=== PATIENT | male | born 2000 | race Caucasian/White ===

== ENCOUNTER → 2018-01-05 08:49 | Outpatient (CLI) | payer MEDICARE, MEDICAID, SELFPAY ==
[2018-01-05 09:28] LABS: Abs Immature Grans 0.01 k/cumm (0.0-0.09); Absolute Basophil Count 0.01 k/cumm (0.0-0.2); Absolute Eosinophil Count 0.07 k/cumm (0.0-0.7); Absolute Lymphocyte Count 1.13 k/cumm (1.2-3.4); Absolute Monocyte Count 0.35 k/cumm (0.11-0.7); Absolute Neutrophil Count 2.65 k/cumm (1.2-6.7); Basophils % 0.2; Eosinophils % 1.7; HCT 38.5 % (40.0-50.0); HGB 12.5 g/dL (13.5-17.5); Immature Grans % 0.2; Lymphocytes % 26.8; Mean Corp. HGB Concentration 32.5 g/dL (32.0-36.0); Mean Corpuscular Hemoglobin 28.1 pg (27.0-33.0); Mean Corpuscular Volume 86.5 fL (80-95); Mean Platelet Volume 9.9 fL (8.0-11.0); Monocytes % 8.3; Neutrophils % 62.8; Platelet Count 114 x1000/uL (130-400); RBC 4.45 m/cumm (4.50-6.00); RBC Distribution Width 15.7 % (11.8-14.1); White Blood Cell Count 4.22 k/cumm (4.4-10.8)
[2018-01-05 09:47] LABS: ALT 18 U/L (12-78); AST 15 U/L (15-37); Albumin 3.8 g/dL (3.4-5.0); Alkaline Phosphatase 91 U/L (46-116); Anion Gap 7.8 mmol/L (3-11); BUN 30 mg/dL (7-18); Bilirubin, Total 0.3 mg/dL (0.2-1.0); CO2 24.2 mmol/L (21.0-32.0); CREATININE 1.61 mg/dL (0.70-1.30); Calcium 8.9 mg/dL (8.5-10.1); Chloride 108 mmol/L (98-107); Estimated GFR 55.56 (mL/min/1.73m2); Glucose 83 mg/dL (70-100); Magnesium 1.7 mg/dL (1.8-2.4); PHOSPHORUS 3.5 mg/dL (2.6-4.7); Potassium 4.3 mmol/L (3.5-5.1); Sodium 140 mmol/L (136-145); Total Protein 7.2 g/dL (6.4-8.2)
[2018-01-05 09:56] LABS: GGT 16 U/L (15-85)
== END ==
PROVIDERS: PCP Pediatrics; Visit Provider Pediatrics Pediatric Gastroenterology
DX: Z94.4 Liver transplant status (principal); N18.3 Chronic kidney disease, stage 3 (moderate)
CPT/HCPCS: 36415; 80053; 80197; 82977; 83735; 84100; 85025

== ENCOUNTER 2018-05-07 12:33 | Outpatient (CLI) | payer MEDICARE, MEDICAID, SELFPAY ==
[2018-05-07 13:05] LABS: Abs Immature Grans 0.01 k/cumm (0.0-0.09); Absolute Basophil Count 0.01 k/cumm (0.0-0.2); Absolute Eosinophil Count 0.07 k/cumm (0.0-0.7); Absolute Lymphocyte Count 1.08 k/cumm (1.2-3.4); Absolute Monocyte Count 0.34 k/cumm (0.11-0.7); Absolute Neutrophil Count 3.02 k/cumm (1.2-6.7); Basophils % 0.2; Eosinophils % 1.5; HCT 38.1 % (40.0-50.0); HGB 12.3 g/dL (13.5-17.5); Immature Grans % 0.2; Lymphocytes % 23.8; Mean Corp. HGB Concentration 32.3 g/dL (32.0-36.0); Mean Corpuscular Hemoglobin 28.7 pg (27.0-33.0); Mean Corpuscular Volume 88.8 fL (80-95); Mean Platelet Volume 9.6 fL (8.0-11.0); Monocytes % 7.5; Neutrophils % 66.8; Platelet Count 148 x1000/uL (130-400); RBC 4.29 m/cumm (4.50-6.00); White Blood Cell Count 4.53 k/cumm (4.4-10.8)
[2018-05-07 13:13] LABS: PTT Activated 29.7 sec (21.0-31.4); Prothrombin Time 9.9 sec (9.3-11.0)
[2018-05-07 13:59] LABS: ALT 24 U/L (12-78); AST 23 U/L (15-37); Albumin 3.6 g/dL (3.4-5.0); Alkaline Phosphatase 79 U/L (46-116); Anion Gap 11.7 mmol/L (3-11); BUN 30 mg/dL (7-18); Bilirubin, Direct 0.09 mg/dL (0.00-0.20); Bilirubin, Total 0.3 mg/dL (0.2-1.0); CO2 23.3 mmol/L (21.0-32.0); CREATININE 1.69 mg/dL (0.70-1.30); Calcium 9.5 mg/dL (8.5-10.1); Chloride 107 mmol/L (98-107); Estimated GFR 51.99 (mL/min/1.73m2); Glucose 90 mg/dL (70-100); Magnesium 1.7 mg/dL (1.8-2.4); Potassium 4.2 mmol/L (3.5-5.1); Sodium 142 mmol/L (136-145); Total Protein 6.6 g/dL (6.4-8.2)
[2018-05-07 14:07] LABS: GGT 23 U/L (15-85)
[2018-05-08 12:26] LABS: Tacrolimus 4.7 ng/ml
== END 2018-05-07 12:53 ==
PROVIDERS: Nurse Practitioner; PCP Pediatrics; Visit Provider Pediatrics
DX: Z94.4 Liver transplant status (principal); Z79.899 Other long term (current) drug therapy; N18.9 Chronic kidney disease, unspecified
CPT/HCPCS: 36415; 80053; 80197; 82248; 82977; 83735; 84100; 85025; 85610; 85730

== ENCOUNTER 2018-05-12 15:20 | Outpatient (CLI) | payer MEDICARE, MEDICAID, SELFPAY ==
[2018-05-12 16:34] LABS: PROTEIN 18.8 mg/dL
[2018-05-12 16:37] LABS: Albumin 3.8 g/dL (3.4-5.0); Anion Gap 10.8 mmol/L (3-11); BUN 34 mg/dL (7-18); CO2 22.2 mmol/L (21.0-32.0); CREATININE 1.57 mg/dL (0.70-1.30); Calcium 9.1 mg/dL (8.5-10.1); Chloride 106 mmol/L (98-107); Estimated GFR 56.61 (mL/min/1.73m2); Glucose 103 mg/dL (70-100); Iron 58 ug/dL (50-175); PHOSPHORUS 3.9 mg/dL (2.6-4.7); Sodium 139 mmol/L (136-145); Total Iron Binding Capacity 296 ug/dL (250-450); Transferrin Sat 20 % (20-55)
[2018-05-12 16:43] LABS: COMMENT (LAB VIEW ONLY) 74.59 mg/dL; Prot/Crea Ur Ratio 0.25
[2018-05-12 17:05] LABS: Abs Immature Grans 0.02 k/cumm (0.0-0.09); Absolute Basophil Count 0.02 k/cumm (0.0-0.2); Absolute Eosinophil Count 0.08 k/cumm (0.0-0.7); Absolute Lymphocyte Count 1.17 k/cumm (1.2-3.4); Absolute Neutrophil Count 4.23 k/cumm (1.2-6.7); Basophils % 0.3; Eosinophils % 1.3; HCT 38.9 % (40.0-50.0); HGB 12.9 g/dL (13.5-17.5); Immature Grans % 0.3; Lymphocytes % 19.4; Mean Corp. HGB Concentration 33.2 g/dL (32.0-36.0); Mean Corpuscular Volume 87.4 fL (80-95); Mean Platelet Volume 10.2 fL (8.0-11.0); Monocytes % 8.3; Neutrophils % 70.4; Platelet Count 170 x1000/uL (130-400); RBC 4.45 m/cumm (4.50-6.00); RBC Distribution Width 13.8 % (11.8-14.1); White Blood Cell Count 6.02 k/cumm (4.4-10.8)
[2018-05-13 06:20] LABS: Vitamin D 25 Total 23.6 ng/ml (30-100)
== END 2018-05-12 15:40 ==
PROVIDERS: PCP Pediatrics; Visit Provider Pediatrics
DX: N18.3 Chronic kidney disease, stage 3 (moderate) (principal); D64.9 Anemia, unspecified
CPT/HCPCS: 36415; 80069; 82306; 82565; 83540; 83550; 83970; 84156; 85025

== ENCOUNTER 2019-08-25 01:06 | Outpatient (CLI) | payer MEDICARE, MEDICAID, SELFPAY ==
[2019-08-25 13:28] LABS: Abs Immature Grans 0.01 k/cumm (0.0-0.09); Absolute Basophil Count 0.01 k/cumm (0.0-0.2); Absolute Lymphocyte Count 1.46 k/cumm (1.2-3.4); Absolute Monocyte Count 0.38 k/cumm (0.11-0.7); Absolute Neutrophil Count 2.28 k/cumm (1.2-6.7); Basophils % 0.2; Eosinophils % 2.4; HCT 37.9 % (40.0-50.0); HGB 12.7 g/dL (13.5-17.5); Immature Grans % 0.2 %; Lymphocytes % 34.4; Mean Corp. HGB Concentration 33.5 g/dL (32.0-36.0); Mean Corpuscular Hemoglobin 28.7 pg (27.0-33.0); Mean Corpuscular Volume 85.6 fL (80-95); Mean Platelet Volume 9.8 fL (8.0-11.0); Neutrophils % 53.8; Platelet Count 196 x1000/uL (130-400); RBC 4.43 m/cumm (4.50-6.00); RBC Distribution Width 13.5 % (11.8-14.1); White Blood Cell Count 4.24 k/cumm (4.4-10.8)
[2019-08-25 14:28] LABS: ALT 20 U/L (16-63); AST 20 U/L (15-37); Albumin 4.4 g/dL (3.4-5.0); Alkaline Phosphatase 90 U/L (46-116); Anion Gap 9.1 mmol/L (3-11); BUN 36 mg/dL (7-18); Bilirubin, Total 0.6 mg/dL (0.2-1.0); CO2 26.9 mmol/L (21.0-32.0); CREATININE 2.17 mg/dL (0.70-1.30); Calcium 9.4 mg/dL (8.5-10.1); Chloride 104 mmol/L (98-107); Estimated GFR 38.58 (mL/min/1.73m2); GGT 33 U/L (15-85); Glucose 57 mg/dL (74-106); Potassium 4.4 mmol/L (3.5-5.1); Sodium 140 mmol/L (136-145); Total Protein 7.4 g/dL (6.4-8.2)
[2019-08-26 13:17] LABS: Tacrolimus 4.4 ng/mL (See Note)
== END 2019-08-25 01:26 ==
PROVIDERS: PCP Pediatrics; Visit Provider Nurse Practitioner Pediatrics
DX: Z94.4 Liver transplant status (principal)
CPT/HCPCS: 36415; 80053; 80197; 82977; 83735; 85025

== ENCOUNTER 2019-09-08 01:34 | Outpatient (CLI) | payer MEDICARE, MEDICAID, SELFPAY ==
[2019-09-08 10:25] LABS: Abs Immature Grans 0.01 k/cumm (0.0-0.09); Absolute Eosinophil Count 0.12 k/cumm (0.0-0.7); Absolute Lymphocyte Count 1.04 k/cumm (1.2-3.4); Absolute Monocyte Count 0.48 k/cumm (0.11-0.7); Absolute Neutrophil Count 3.01 k/cumm (1.2-6.7); Eosinophils % 2.6; HCT 36.9 % (40.0-50.0); HGB 12.4 g/dL (13.5-17.5); Immature Grans % 0.2 %; Lymphocytes % 22.3; Mean Corp. HGB Concentration 33.6 g/dL (32.0-36.0); Mean Corpuscular Hemoglobin 28.6 pg (27.0-33.0); Mean Corpuscular Volume 85.2 fL (80-95); Mean Platelet Volume 10.4 fL (8.0-11.0); Monocytes % 10.3; Neutrophils % 64.6; Platelet Count 152 x1000/uL (130-400); RBC 4.33 m/cumm (4.50-6.00); RBC Distribution Width 13.1 % (11.8-14.1); White Blood Cell Count 4.66 k/cumm (4.4-10.8)
[2019-09-08 10:50] LABS: Prothrombin Time 10.4 sec (9.3-11.0)
[2019-09-08 11:06] LABS: ALT 261 U/L (16-63); AST 177 U/L (15-37); Albumin 4.4 g/dL (3.4-5.0); Alkaline Phosphatase 141 U/L (46-116); Anion Gap 9.3 mmol/L (3-11); BUN 28 mg/dL (7-18); Bilirubin, Direct 0.15 mg/dL (0.00-0.20); Bilirubin, Total 0.5 mg/dL (0.2-1.0); CO2 25.7 mmol/L (21.0-32.0); CREATININE 1.76 mg/dL (0.70-1.30); Calcium 9.5 mg/dL (8.5-10.1); Chloride 103 mmol/L (98-107); Estimated GFR 49.13 (mL/min/1.73m2); Glucose 88 mg/dL (74-106); Magnesium 1.8 mg/dL (1.8-2.4); PHOSPHORUS 3.9 mg/dL (2.6-4.7); Potassium 4.4 mmol/L (3.5-5.1); Sodium 138 mmol/L (136-145); Total Protein 7.5 g/dL (6.4-8.2)
[2019-09-08 11:13] LABS: GGT 163 U/L (15-85)
[2019-09-09 13:30] LABS: Tacrolimus 3.7 ng/mL (See Note)
== END 2019-09-08 01:54 ==
PROVIDERS: PCP Pediatrics; Visit Provider Nurse Practitioner Pediatrics
DX: Z94.4 Liver transplant status (principal); Z51.81 Encounter for therapeutic drug level monitoring; Z79.899 Other long term (current) drug therapy
CPT/HCPCS: 36415; 80053; 80197; 82248; 82977; 83735; 84100; 85025; 85610; 85730

== ENCOUNTER 2019-09-14 03:49 | Outpatient (CLI) | payer MEDICARE, MEDICAID, SELFPAY ==
[2019-09-14 11:09] LABS: Abs Immature Grans 0.01 k/cumm (0.0-0.09); Absolute Basophil Count 0.01 k/cumm (0.0-0.2); Absolute Eosinophil Count 0.12 k/cumm (0.0-0.7); Absolute Lymphocyte Count 1.12 k/cumm (1.2-3.4); Absolute Monocyte Count 0.21 k/cumm (0.11-0.7); Absolute Neutrophil Count 2.86 k/cumm (1.2-6.7); Basophils % 0.2; Eosinophils % 2.8; HCT 38.6 % (40.0-50.0); HGB 12.9 g/dL (13.5-17.5); Immature Grans % 0.2 %; Lymphocytes % 25.9; Mean Corp. HGB Concentration 33.4 g/dL (32.0-36.0); Mean Corpuscular Volume 83.9 fL (80-95); Monocytes % 4.8; Neutrophils % 66.1; Platelet Count 208 x1000/uL (130-400); RBC Distribution Width 13.2 % (11.8-14.1); White Blood Cell Count 4.33 k/cumm (4.4-10.8)
[2019-09-14 11:27] LABS: PTT Activated 26.6 sec (21.0-31.4); Prothrombin Time 10.1 sec (9.3-11.0)
[2019-09-14 11:42] LABS: ALT 59 U/L (16-63); AST 19 U/L (15-37); Alkaline Phosphatase 112 U/L (46-116); Anion Gap 9.5 mmol/L (3-11); BUN 34 mg/dL (7-18); Bilirubin, Direct 0.08 mg/dL (0.00-0.20); Bilirubin, Total 0.3 mg/dL (0.2-1.0); CO2 23.5 mmol/L (21.0-32.0); CREATININE 1.73 mg/dL (0.70-1.30); Calcium 9.4 mg/dL (8.5-10.1); Chloride 106 mmol/L (98-107); Estimated GFR 50.11 (mL/min/1.73m2); Glucose 111 mg/dL (74-106); Magnesium 1.7 mg/dL (1.8-2.4); PHOSPHORUS 4.1 mg/dL (2.6-4.7); Sodium 139 mmol/L (136-145); Total Protein 7.7 g/dL (6.4-8.2)
[2019-09-14 12:42] LABS: GGT 62 U/L (15-85)
[2019-09-15 13:29] LABS: Tacrolimus 3.8 ng/mL (See Note)
== END 2019-09-14 04:09 ==
PROVIDERS: PCP Pediatrics; Visit Provider Nurse Practitioner Pediatrics
DX: Z94.4 Liver transplant status (principal); Z51.81 Encounter for therapeutic drug level monitoring; Z79.899 Other long term (current) drug therapy
CPT/HCPCS: 36415; 80053; 80197; 82248; 82977; 83735; 84100; 85025; 85610; 85730

== ENCOUNTER 2020-05-31 03:24 | Outpatient (CLI) | payer MEDICARE, MEDICAID, SELFPAY ==
[2020-05-31 15:25] LABS: Abs Immature Grans 0.01 10^3/uL (0.0-0.06); Absolute Basophil Count 0.02 10^3/uL (0.0-0.2); Absolute Eosinophil Count 0.07 10^3/uL (0.0-0.7); Absolute Lymphocyte Count 1.22 10^3/uL (1.2-3.4); Absolute Monocyte Count 0.42 10^3/uL (0.1-0.8); Absolute Neutrophil Count 3.43 10^3/uL (1.2-6.7); Basophils % 0.4; Eosinophils % 1.4; HGB 11.9 g/dL (13.5-17.5); Immature Grans % 0.2; Lymphocytes % 23.6; MCH 27.2 pg (27.0-33.0); MCHC 33.1 % (32.0-36.0); MCV 82.4 fL (80-95); MPV 10.2 fL (8.0-11.0); Monocytes % 8.1; Neutrophils % 66.3; Nucleated RBC 0 %; Platelet Count 152 10^3/uL (130-400); RBC 4.37 10^6/uL (4.36-5.78); RDW 13.3 % (11.8-14.1); RDW-SD 39.8 fL; WBC 5.17 10^3/uL (4.4-10.8)
[2020-05-31 15:51] LABS: INR 1.1 (0.9-1.1); PTT Activated 25.7 sec (21.0-27.5); Prothrombin Time 10.6 sec (9.3-11.0)
[2020-05-31 16:23] LABS: ALT 15 U/L (16-63); AST 14 U/L (15-37); Albumin 4.2 g/dL (3.4-5.0); Alkaline Phosphatase 85 U/L (46-116); Anion Gap 9.6 mmol/L (3-11); BUN 36 mg/dL (7-18); Bilirubin, Direct 0.12 mg/dL (0.00-0.20); Bilirubin, Total 0.5 mg/dL (0.2-1.0); CO2 24.4 mmol/L (21.0-32.0); CREATININE 2.06 mg/dL (0.70-1.30); Calcium 9.6 mg/dL (8.5-10.1); Chloride 106 mmol/L (98-107); Estimated GFR 40.58 (mL/min/1.73m2); Glucose 85 mg/dL (74-106); Magnesium 1.9 mg/dL (1.8-2.4); PHOSPHORUS 4.4 mg/dL (2.6-4.7); Potassium 4.4 mmol/L (3.5-5.1); Sodium 140 mmol/L (136-145); Total Protein 7.2 g/dL (6.4-8.2)
[2020-05-31 16:31] LABS: GGT 19 U/L (15-85)
[2020-06-02 13:37] LABS: Tacrolimus 3.6 ng/mL (See Note)
== END 2020-05-31 03:44 ==
PROVIDERS: PCP Nurse Practitioner Family; Visit Provider Nurse Practitioner Pediatrics
DX: Z94.4 Liver transplant status (principal); N18.30 Chronic kidney disease, stage 3 unspecified; D62 Acute posthemorrhagic anemia; Z51.81 Encounter for therapeutic drug level monitoring
CPT/HCPCS: 36415; 80053; 80197; 82248; 82977; 83735; 84100; 85025; 85610; 85730

== ENCOUNTER 2020-07-02 12:19 | Outpatient (CLI) | payer MEDICARE, MEDICAID, SELFPAY ==
[2020-07-02 12:57] LABS: Abs Immature Grans 0.03 10^3/uL (0.0-0.06); Absolute Basophil Count 0.02 10^3/uL (0.0-0.2); Absolute Eosinophil Count 0.07 10^3/uL (0.0-0.7); Absolute Lymphocyte Count 0.97 10^3/uL (1.2-3.4); Absolute Monocyte Count 0.35 10^3/uL (0.1-0.8); Basophils % 0.4; Eosinophils % 1.5; HCT 37.7 % (40.0-50.0); HGB 12.2 g/dL (13.5-17.5); Immature Grans % 0.7; Lymphocytes % 21.4; MCH 27.4 pg (27.0-33.0); MCHC 32.4 % (32.0-36.0); MCV 84.7 fL (80-95); MPV 10.9 fL (8.0-11.0); Monocytes % 7.7; Neutrophils % 68.3; Nucleated RBC 0 %; Platelet Count 131 10^3/uL (130-400); RBC 4.45 10^6/uL (4.36-5.78); RDW 14.2 % (11.8-14.1); RDW-SD 43.7 fL; WBC 4.54 10^3/uL (4.4-10.8)
[2020-07-02 13:43] LABS: ALT 20 U/L (16-63); AST 18 U/L (15-37); Albumin 4.1 g/dL (3.4-5.0); Alkaline Phosphatase 87 U/L (46-116); Anion Gap 12.8 mmol/L (3-11); BUN 36 mg/dL (7-18); Bilirubin, Direct 0.08 mg/dL (0.00-0.20); Bilirubin, Total 0.4 mg/dL (0.2-1.0); CO2 22.2 mmol/L (21.0-32.0); Calcium 9.3 mg/dL (8.5-10.1); Chloride 110 mmol/L (98-107); Estimated GFR 41.99 (mL/min/1.73m2); Glucose 94 mg/dL (74-106); Magnesium 1.8 mg/dL (1.8-2.4); PHOSPHORUS 4.1 mg/dL (2.6-4.7); Potassium 4.5 mmol/L (3.5-5.1); Sodium 145 mmol/L (136-145); Total Protein 7.1 g/dL (6.4-8.2)
[2020-07-02 13:50] LABS: GGT 18 U/L (15-85)
[2020-07-02 13:59] LABS: PTT Activated 25.8 sec (21.0-27.5); Prothrombin Time 10.4 sec (9.3-11.0)
[2020-07-03 13:20] LABS: Tacrolimus 4.9 ng/mL (See Note)
== END 2020-07-02 12:20 | disposition home or self-care (01) ==
LOC: LBO 12:20
PROVIDERS: PCP Nurse Practitioner Family; Visit Provider Pediatrics Pediatric Gastroenterology
DX: Z94.4 Liver transplant status (principal); N18.30 Chronic kidney disease, stage 3 unspecified; D62 Acute posthemorrhagic anemia
CPT/HCPCS: 36415; 80053; 80197; 82248; 82977; 83735; 84100; 85025; 85610; 85730

== ENCOUNTER 2020-07-26 03:48 | Outpatient (CLI) | payer MEDICARE, MEDICAID, SELFPAY ==
[2020-07-26 12:20] LABS: HGB 12.1 g/dL (13.5-17.5); MCH 27.9 pg (27.0-33.0); MCHC 32.7 % (32.0-36.0); MCV 85.5 fL (80-95); MPV 10.4 fL (8.0-11.0); Platelet Count 142 10^3/uL (130-400); RBC 4.33 10^6/uL (4.36-5.78); RDW 13.7 % (11.8-14.1); WBC 2.39 10^3/uL (4.4-10.8)
[2020-07-26 13:03] LABS: ALT 26 U/L (16-63); AST 23 U/L (15-37); Alkaline Phosphatase 86 U/L (46-116); Anion Gap 12.9 mmol/L (3-11); BUN 46 mg/dL (7-18); Bilirubin, Direct 0.1 mg/dL (0.0-0.2); Bilirubin, Total 0.4 mg/dL (0.2-1.0); CO2 21.1 mmol/L (21.0-32.0); CREATININE 1.9 mg/dL (0.70-1.30); Calcium 9.3 mg/dL (8.5-10.1); Chloride 106 mmol/L (98-107); Estimated GFR 44.55 (mL/min/1.73m2); Glucose 93 mg/dL (74-106); PHOSPHORUS 4.4 mg/dL (2.6-4.7); Potassium 4.3 mmol/L (3.5-5.1); Sodium 140 mmol/L (136-145); Total Protein 7.1 g/dL (6.4-8.2); Uric Acid 6.3 mg/dL (3.5-7.2)
[2020-07-27 09:10] LABS: Parathyroid Hormone,Intact 45 pg/mL (19-88)
[2020-07-27 14:21] LABS: Tacrolimus 2.6 ng/mL (See Note)
[2020-07-27 15:44] LABS: MPA Glucuronide 53 mcg/mL (35 - 100)
== END 2020-07-26 03:49 | disposition home or self-care (01) ==
LOC: LBO 03:48
PROVIDERS: Internal Medicine Nephrology; PCP Nurse Practitioner Family; Visit Provider Pediatrics Pediatric Gastroenterology
DX: N18.32 Chronic kidney disease, stage 3b (principal); D62 Acute posthemorrhagic anemia; Z94.4 Liver transplant status
CPT/HCPCS: 36415; 80048; 80076; 85027; 80180; 80197; 83970; 84100; 84550

== ENCOUNTER 2021-02-13 03:34 | Outpatient (CLI) | payer MEDICARE, MEDICAID, SELFPAY ==
[2021-02-13 14:14] LABS: HCT 39.7 % (40.0-50.0); MCH 27.9 pg (27.0-33.0); MCHC 32.7 % (32.0-36.0); MCV 85.2 fL (80-95); MPV 9.6 fL (8.0-11.0); Platelet Count 148 10^3/uL (130-400); RBC 4.66 10^6/uL (4.36-5.78); RDW 13.4 % (11.8-14.1); RDW-SD 41.5 fL; WBC 5.53 10^3/uL (4.4-10.8)
[2021-02-13 15:16] LABS: ALT 25 U/L (16-63); AST 24 U/L (15-37); Albumin 3.7 g/dL (3.4-5.0); Alkaline Phosphatase 85 U/L (46-116); Anion Gap 10.6 mmol/L (3-11); BUN 43 mg/dL (7-18); Bilirubin, Direct 0.1 mg/dL (0.0-0.2); Bilirubin, Total 0.3 mg/dL (0.2-1.0); CO2 22.4 mmol/L (21.0-32.0); CREATININE 2.1 mg/dL (0.70-1.30); Calcium 9.2 mg/dL (8.5-10.1); Chloride 109 mmol/L (98-107); Estimated GFR 39.33 (mL/min/1.73m2); GGT 35 U/L (15-85); Glucose 84 mg/dL (74-106); Magnesium 2.3 mg/dL (1.8-2.4); PHOSPHORUS 4.3 mg/dL (2.6-4.7); Potassium 4.5 mmol/L (3.5-5.1); Sodium 142 mmol/L (136-145); Total Protein 6.7 g/dL (6.4-8.2)
[2021-02-13 16:06] LABS: PTT Activated 25.2 sec (21.0-27.5); Prothrombin Time 9.9 sec (9.3-11.0)
[2021-02-13 16:18] LABS: Abs Immature Grans 0.03 10^3/uL (0.0-0.06); Absolute Basophil Count 0.03 10^3/uL (0.0-0.2); Absolute Eosinophil Count 0.12 10^3/uL (0.0-0.7); Absolute Lymphocyte Count 0.95 10^3/uL (1.2-3.4); Absolute Monocyte Count 0.44 10^3/uL (0.1-0.8); Absolute Neutrophil Count 3.88 10^3/uL (1.2-6.7); Basophils % 0.6; Eosinophils % 2.2; Immature Grans % 0.6; Lymphocytes % 17.4; Monocytes % 8.1; Neutrophils % 71.1
[2021-02-14 09:24] LABS: Parathyroid Hormone,Intact 56 pg/mL (19-88)
[2021-02-14 14:09] LABS: Tacrolimus 2.7 ng/mL (See Note)
== END 2021-02-13 03:35 | disposition home or self-care (01) ==
LOC: LBO 03:34
PROVIDERS: Internal Medicine Nephrology; PCP Nurse Practitioner Family; Visit Provider Nurse Practitioner Pediatrics
DX: Z94.4 Liver transplant status (principal); N18.32 Chronic kidney disease, stage 3b
CPT/HCPCS: 36415; 80048; 80076; 85027; 80197; 82977; 83735; 83970; 84100; 85007; 85610; 85730

== ENCOUNTER 2023-03-13 01:49 | Outpatient (CLI) | payer MEDICARE, SELFPAY ==
[2023-03-13 11:12] LABS: Abs Immature Grans 0.01 10^3/uL (0.0-0.06); Absolute Basophil Count 0.02 10^3/uL (0.0-0.2); Absolute Eosinophil Count 0.12 10^3/uL (0.0-0.7); Absolute Lymphocyte Count 1.27 10^3/uL (1.2-3.4); Absolute Monocyte Count 0.48 10^3/uL (0.1-0.8); Absolute Neutrophil Count 3.08 10^3/uL (1.2-6.7); Basophils % 0.4; Eosinophils % 2.4; HCT 37.2 % (40.0-50.0); HGB 12.3 g/dL (13.5-17.5); Immature Grans % 0.2; Lymphocytes % 25.5; MCH 28.3 pg (27.0-33.0); MCHC 33.1 % (32.0-36.0); MCV 86 fL (80-95); Monocytes % 9.6; Neutrophils % 61.9; Platelet Count 169 10^3/uL (130-400); RBC 4.34 10^6/uL (4.36-5.78); RDW 14.3 % (11.8-14.1); RDW-SD 44.8 fL; WBC 4.98 10^3/uL (4.4-10.8)
[2023-03-13 11:47] LABS: ALT 18 U/L (16-63); AST 17 U/L (15-37); Albumin 3.4 g/dL (3.4-5.0); Alkaline Phosphatase 211 U/L (46-116); Anion Gap 14.3 mmol/L (3-11); BUN 64 mg/dL (7-18); Bilirubin, Total 0.4 mg/dL (0.2-1.0); CO2 19.7 mmol/L (21.0-32.0); CREATININE 2.7 mg/dL (0.70-1.30); Calcium 9.3 mg/dL (8.5-10.1); Chloride 106 mmol/L (98-107); Estimated GFR 32.52 (mL/min/1.73m2); Glucose 110 mg/dL (74-106); Sodium 140 mmol/L (136-145); Total Protein 7.3 g/dL (6.4-8.2)
[2023-03-14 12:07] LABS: Tacrolimus 3.2 ng/mL (See Note)
== END 2023-03-13 01:50 | disposition home or self-care (01) ==
LOC: LBO 01:50
PROVIDERS: PCP Nurse Practitioner Family; Visit Provider Physician Assistant Medical
DX: Z48.23 Encounter for aftercare following liver transplant (principal)
CPT/HCPCS: 36415; 80053; 80197; 85025

== ENCOUNTER → 2023-03-30 14:59 | Outpatient (BNVA) | payer MEDICARE, SELFPAY | PROVIDERS: PCP Nurse Practitioner Family; Referring Provider Nurse Practitioner Family; Visit Provider Nurse Practitioner Gerontology | DX: Z30.09 Encounter for other general counseling and advice on contraception (principal) | CPT/HCPCS: 99203 ==

== ENCOUNTER 2023-05-29 04:05 | Outpatient (CLI) | payer MEDICARE, MEDICAID, SELFPAY ==
[2023-05-29 11:28] LABS: Abs Immature Grans 0.01 10^3/uL (0.0-0.06); Absolute Basophil Count 0.04 10^3/uL (0.0-0.2); Absolute Eosinophil Count 0.12 10^3/uL (0.0-0.7); Absolute Monocyte Count 0.48 10^3/uL (0.1-0.8); Absolute Neutrophil Count 4.82 10^3/uL (1.2-6.7); Basophils % 0.6; Eosinophils % 1.9; HCT 38.1 % (40.0-50.0); HGB 12.7 g/dL (13.5-17.5); Immature Grans % 0.2; Lymphocytes % 15.5; MCHC 33.3 % (32.0-36.0); MCV 87 fL (80-95); Monocytes % 7.4; Neutrophils % 74.4; Platelet Count 145 10^3/uL (130-400); RBC 4.38 10^6/uL (4.36-5.78); RDW 13.6 % (11.8-14.1); RDW-SD 43.6 fL; WBC 6.47 10^3/uL (4.4-10.8)
[2023-05-29 12:17] LABS: ALT 26 U/L (16-63); AST 39 U/L (15-37); Albumin 3.6 g/dL (3.4-5.0); Alkaline Phosphatase 104 U/L (46-116); Anion Gap 12.7 mmol/L (3-11); BUN 52 mg/dL (7-18); Bilirubin, Total 0.4 mg/dL (0.2-1.0); CO2 19.3 mmol/L (21.0-32.0); CREATININE 3.3 mg/dL (0.70-1.30); Calcium 9.4 mg/dL (8.5-10.1); Chloride 109 mmol/L (98-107); Estimated GFR 25.56 (mL/min/1.73m2); Glucose 102 mg/dL (74-106); Sodium 141 mmol/L (136-145)
[2023-05-30 12:15] LABS: Tacrolimus <2.0 ng/mL (See Note)
== END 2023-05-29 04:06 | disposition home or self-care (01) ==
LOC: LBO 04:06
PROVIDERS: PCP Nurse Practitioner Family; Visit Provider Physician Assistant Medical
DX: Z48.23 Encounter for aftercare following liver transplant (principal)
CPT/HCPCS: 36415; 80053; 80197; 85025

== ENCOUNTER 2023-06-29 14:29 | Emergency (ER) | payer MEDICARE, MEDICAID, SELFPAY ==
[2023-06-29 14:36] VITALS: BP 166/31; PULSE 82; RESP 19; TEMP 37.2; O2SAT 100
--- NOTE | 2023-06-29 14:40 | ED.GENADUL_ITS ---
HPI General Mode of arrival: ambulatory . Date/Time Provider Initiated Documentation: 06/29/23 14:30 . Limitations to Documentation: physical limitation (Severe Visual impairment) . Information obtained by: patient and old records reviewed . HPI Narrative: 23-year-old presents to the ER chief feeling depressed and having thoughts of harming himself. He has no particular plan he reports that this began a couple hours ago. He reports that he has had feelings of this in the past. Of note he is also complaining of some sinus congestion and left ear pain for the last few weeks. He is concerned about sinus infection. He denies any other associated symptoms. Patient reports marijuana denies any alcohol or drug has not down evening or last couple of days to harm self. He does have a history of liver transplant, is on immunosuppressant medications and blindness. He is alert and oriented x 4 does not appear to be under the influence of any substances at this time. Related Data Home Medications Medication Instructions Recorded Confirmed Prograf 1 mg capsule (tacrolimus) 3 mg (3 x 1 mg) PO BID #540 caps 12/20/18 06/29/23 cholecalciferol (vitamin D3) 50 2,000 unit PO DAILY #90 caps 12/20/18 06/29/23 mcg (2,000 unit) capsule (D3-2000) mycophenolate mofetil 500 mg 1,000 mg (2 x 500 mg) PO BID #360 12/20/18 06/29/23 tablet (CellCept) tabs tacrolimus 0.5 mg capsule, 0.5 mg PO BID #180 caps 06/24/19 06/29/23 immediate-release (Prograf) allopurinol 200 mg tablet 200 mg PO DAILY 03/30/23 06/29/23 aspirin 81 mg tablet,delayed 81 mg PO DAILY #90 tabs 06/04/23 06/29/23 release ferrous sulfate 325 mg (65 mg 325 mg PO TID #270 tabs 06/04/23 06/29/23 iron) tablet sodium bicarbonate 650 mg tablet 650 mg PO BID #540 tabs 06/04/23 06/29/23 carvedilol 12.5 mg tablet 12.5 mg PO BID 06/29/23 06/29/23 Previous Rx's Medication Instructions Recorded Prograf 1 mg capsule (tacrolimus) 3 mg (3 x 1 mg) PO BID #540 caps 12/20/18 cholecalciferol (vitamin D3) 50 2,000 unit PO DAILY #90 caps 12/20/18 mcg (2,000 unit) capsule (D3-2000) mycophenolate mofetil 500 mg 1,000 mg (2 x 500 mg) PO BID #360 12/20/18 tablet (CellCept) tabs tacrolimus 0.5 mg capsule, 0.5 mg PO BID #180 caps 06/24/19 immediate-release (Prograf) aspirin 81 mg tablet,delayed 81 mg PO DAILY #90 tabs 06/04/23 release ferrous sulfate 325 mg (65 mg 325 mg PO TID #270 tabs 06/04/23 iron) tablet sodium bicarbonate 650 mg tablet 650 mg PO BID #540 tabs 06/04/23 Allergies Allergy/AdvReac Type Severity Reaction Status Date / Time ibuprofen AdvReac Unknown Other (See Verified 06/29/23 14:54 Comment) General Stated Complaint: PsychEval FRANCO: 2 Review of Systems All systems reviewed & are unremarkable except as noted in HPI and below ENT Ears, Nose, Mouth, and Throat: Reports as per HPI, Reports otalgia, Reports nasal congestion, Reports sinus pressure and Reports sore throat Psychiatric Psychiatric: Reports as per HPI, Reports depression and Reports suicidal ideation Exam HENMT Ears: TM's normal bilaterally and mastoids normal Resp Effort & Inspection: normal respiratory effort Auscultation: clear to auscultation bilaterally Cardio Heart Sounds: S1 normal and S2 normal Psych Appearance: grossly normal Speech and Movement: speech and movement normal Affect: normal affect Attitude: cooperative and guarded Thought Process: normal Thought Content: normal and suicidality Insight: insight good Judgment: judgment good Course Vital Signs Vital signs: Vital Signs Temperature 37.2 C 06/29/23 14:36 Pulse 82 06/29/23 14:36 Respiratory Rate 19 06/29/23 14:36 Blood Pressure 166/31 H 06/29/23 14:36 Pulse Oximetry 100 06/29/23 14:36 Temperature 37.2 C 06/29/23 14:36 Temperature Source Temporal Artery Scan 06/29/23 14:36 Pulse 82 06/29/23 14:36 Respiratory Rate 19 06/29/23 14:36 Blood Pressure 166/31 H 06/29/23 14:36 Blood Pressure Position Sitting 06/29/23 14:36 Pulse Oximetry 100 06/29/23 14:36 Oxygen Delivery Method Room Air 06/29/23 14:36 Oxygen Flow Rate 0 06/29/23 14:36 Pain Level 4 06/29/23 14:36 Medical Decision Making 23-year-old presents to the ER chief feeling depressed and having thoughts of harming himself. He has no particular plan he reports that this began a couple hours ago. He reports that he has had feelings of this in the past. Of note he is also complaining of some sinus congestion and left ear pain for the last few weeks. He is concerned about sinus infection. He denies any other associated symptoms. Patient reports marijuana denies any alcohol or drug has not down evening or last couple of days to harm self. He does have a history of liver transplant, is on immunosuppressant medications and blindness. He is alert and oriented x 4 does not appear to be under the influence of any substances at this time. Smart medical clearance form filled out, flu COVID swab ordered due to patient's URI type symptoms. Sandi is here at the department and did briefly discuss patient case with her. Covid/ FLU rapid POC negative. Care is to be handed off to oncoming provider Justice Omalley NP pending an EKG chest and mental health evaluation and disposition. Medical Records Medical records reviewed: Yes I reviewed the patient's medical records. 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 -hb Family History Father Alcohol use disorder Maternal Grandfather Alcohol use disorder Social History Smoking/Tobacco Use Status: Never Second Hand Exposure: No Smoking risk assessment performed?: Yes Alcohol Intake: current Alcohol Intake frequency: holidays/special occasions only Alcohol type: hard liquor Drug use: Rarely Substance use type: marijuana Adopted: No Caregiver/Support person: No Foster care: No Household members: family and children Housing: house Number of Children: 1 Communication Needs: Blind Education Level: college Details: some Do you need help understanding health information?: Rarely current occupation: Unemployed Pets and animals: Yes Pets and animals: dog(s) Sexually active: Yes Do you think of yourself as: straight/heterosexual Current gender identity: male What is your relationship status?: never How often do you talk on the phone with friends or family?: never How often do you get together with friends or relatives?: once per week How often do you attend restorationism or taoism services?: 1-3 times per year Panel score (0-1 are the most socially isolated patients): 0 What type of physical activity do you participate in: walking Duration: 15-30 minutes/day Frequency: 5-6 times per week Essenec/Adventist: None Agree to transfusion: Yes Seatbelt use: always Helmet use: Yes Helmet use: always Drive intox or ride w/intox hack driver: No Working smoke detector in home: Yes Carbon monox detector in home: Yes Firearms in home: Yes Firearms unloaded and locked: Yes Do you feel safe at home: Yes Do you feel safe in your relationship?: Yes Victim of physical abuse: No Victim of emotional abuse: No Victim of sexual abuse: No Sign Out Sign Out Data: Sign Out Comment: 23 year old male with Hx of Liver transplant, and Severe visual impairment who presents with Depression, and suicidal ideations with no plan. Also concerned about possible sinusitis. negative Flu and Covid rapid POC. COLLINS Sandi aware, pending evaluation. Expected DC home with safety plan. Last updated by Aura Murray NP at 06/29/23 15:25 Discharge Plan Discharge Details Chief Complaint: PsychEval Primary Care Provider: Nathan Bowman ED Provider: Aura Murray Home Meds and New Rx's Prescriptions: No Action aspirin 81 mg tablet,delayed release (DR/EC) 81 mg PO DAILY Qty: 90 3RF ferrous sulfate 325 mg (65 mg iron) tablet 325 mg PO TID Qty: 270 6RF sodium bicarbonate 650 mg tablet 650 mg PO BID Qty: 540 6RF allopurinol 200 mg tablet 200 mg PO DAILY cholecalciferol (vitamin D3) [D3-2000] 2,000 unit capsule 2,000 unit PO DAILY Qty: 90 3RF mycophenolate mofetil [CellCept] 500 mg tablet 1,000 mg PO BID Qty: 360 5RF Rx Instructions: Take 2 tabs (total 1000 mg) twice daily tacrolimus [Prograf] 1 mg capsule 3 mg PO BID Qty: 540 3RF Rx Instructions: 3 caps plus one 0.5mg cap for total 3.5mg twice daily tacrolimus [Prograf] 0.5 mg capsule 0.5 mg PO BID Qty: 180 3RF Rx Instructions: take 1 cap plus three 1mg caps for total 3.5mg twice daily carvedilol 12.5 mg tablet 12.5 mg PO BID Patient Comments: TAKE ONE TABLET BY MOUTH TWO TIMES A DAY WITH MEALS
--- NOTE | 2023-06-29 16:25 | W.EDPROG ---
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 I did send him home with a small to go pack of hydroxyzine for anxiety as needed, and [facility] is recommending him for med management he was reassured by this, he feels safe at home has family supports, I recommend he continue hydroxyzine if it proves effective on a trial from the supplied to go pack here. Denies active SI/HI. Medical Records Medical records reviewed: Yes I reviewed the patient's medical records. Lab Data Lab results reviewed: Yes I reviewed the patient's lab results. Lab results narrative: Covid/Flu neg Quality:SDOH Health Related Social Needs: No Data to Display Sign Out Sign Out Data: Sign Out Comment: 23 year old male with Hx of Liver transplant, and Severe visual impairment who presents with Depression, and suicidal ideations with no plan. Also concerned about possible sinusitis. negative Flu and Covid rapid POC. COLLINS Junior aware, pending evaluation. Expected DC home with safety plan. Last updated by Aura Murray NP at 06/29/23 15:25 Discharge Plan Disposition Patient Disposition: Home Condition: Stable Discharge Details Clinical Impression: Depression, Sinusitis Primary Care Provider: Nathan Bowman ED Provider: Isai Soliz Home Meds and New Rx's Prescriptions: New amoxicillin-pot clavulanate 875-125 mg tablet 1 tab PO BID 10 Days Qty: 20 0RF Continued aspirin 81 mg tablet,delayed release (DR/EC) 81 mg PO DAILY Qty: 90 3RF ferrous sulfate 325 mg (65 mg iron) tablet 325 mg PO TID Qty: 270 6RF sodium bicarbonate 650 mg tablet 650 mg PO BID Qty: 540 6RF allopurinol 200 mg tablet 200 mg PO DAILY cholecalciferol (vitamin D3) [D3-2000] 2,000 unit capsule 2,000 unit PO DAILY Qty: 90 3RF mycophenolate mofetil [CellCept] 500 mg tablet 1,000 mg PO BID Qty: 360 5RF Rx Instructions: Take 2 tabs (total 1000 mg) twice daily tacrolimus [Prograf] 1 mg capsule 3 mg PO BID Qty: 540 3RF Rx Instructions: 3 caps plus one 0.5mg cap for total 3.5mg twice daily tacrolimus [Prograf] 0.5 mg capsule 0.5 mg PO BID Qty: 180 3RF Rx Instructions: take 1 cap plus three 1mg caps for total 3.5mg twice daily carvedilol 12.5 mg tablet 12.5 mg PO BID Patient Comments: TAKE ONE TABLET BY MOUTH TWO TIMES A DAY WITH MEALS Discharge Instructions Instructions: Amoxicillin/Clavulanate Potassium (By mouth), Sinusitis (ED), Depression (ED), Help Prevent Suicide (ED) Additional Instructions: You were seen in the emergency department for mental health evaluation, [facility] services will recommend you for outpatient services based on their mental health evaluation. I think this is a reasonable, please do return to the emergency department at once if you are having any further severe depressive thoughts or intrusive thoughts about harming yourself. You also report a sinus infection which I have sent antibiotics to [facility] in [place], have also sent you home with a small to go pack of hydroxyzine and as needed anxiety medication, if this medicine helps at home please talk about this with your med management meeting with [facility] services contact you tomorrow or the next day. Referrals: Nathan Bowman NP [Primary Care Provider] - Discharge Data Discharge Date/Time-TO BE ENTERED AT DEPARTURE: 06/29/23 16:56
[2023-06-29] MEDS: hydrOXYzine HCL 25 MG TAB PO (16:54)
--- NOTE | 2023-06-30 09:35 | PDOC.MHCN ---
Date of service: 06/29/23 Time of Service: 09:35 PHQ-9 Over the last 2 weeks, how often have you been bothered by any of the following problems? 1. Little interest or pleasure in doing things: several days 2. Feeling down, depressed, or hopeless: several days 3. Trouble falling or staying asleep, or sleeping too much: several days 4. Feeling tired or having little energy: several days 5. Poor appetite or overeating: not at all 6. Feeling bad about yourself - or that you are a failure or have let yourself and your family down: more than half the days 7. Trouble concentrating on things, such as reading the newspaper or watching television: not at all 8. Moving or speaking so slowly that other people could have noticed? - Or the opposite - being so fidgety or restless that you have been moving around a lot more than usual: not at all 9. Thoughts that you would be better off or of hurting yourself in some way: several days Total score: 7 If you checked off any problems, how difficult have these problems made it for you to do your work, take care of things at home, or get along with other people?: very difficult Source: Developed by Drs. Bulmaro Zarate, Kavya Booker, Jaswant Mayfield and colleagues, with an educational jose from [employer]. Suicide Severity Rate CSSRS Have you wished you were or wished you could go to sleep and not wake up?: Yes Have you actually had any thoughts of killing yourself?: Yes CSSRS2 Have you been thinking about how you might do this?: Yes Have you had these thoughts and had some intention of acting on them?: No Have you started to work out or worked out the details of how to kill yourself? Do you intend to carry out this plan?: Yes CSSRS3 Have you ever done anything, started to do anything or prepared to do anything to end your life?: Yes CSSRS4 Was this within the past three months?: No Screening Score Total Score: 6 Screening: Positive Mental Health Emergency Note Release [facility] release signed:: Yes Reason for Visit The client is not known to [facility] as a client. He has no previous hospitalizations. He presented to the ED tonight via his mother who was also caring for his son with complaints of SI with no reported intent of plan. Upon assessment the client did have a plan but still denied intent as once he had that thought I needed to come to the ED. He is beginning his treatment on an outpatient basis with a therapist Alina Rodriguez who cancelled their first appointment on Thursday and needs to still be rescheduled. In the last 2 weeks has the pt presented for ES prior to today?: Unknown Client Information Client is: New Non Suicidal Self Injury Current: No History: No Safety Risk/Harm to Self or Others Current Ideation to Harm Self or Others: Yes to self. Intent: no, has no intent. Plan: yes,has a plan. History of suicide attempt: No history of suicide attempt reported Risk: Does risk to harm exist?: yes. Access to means: Yes. Types of Means: Other weapons and Medication. Counseling provided: Yes Risk: Moderate Risk Duty to warn indicated: No Asssessment/Mental Status Appearance: Well groomed Attitude: Cooperative and Guarded Behavior: Unremarkable Speech: Soft Affect: Cogruent with mood Mood: Stressed, Depressed and Anxious Thought process: Goal directed Hallucinations: No Delusions: No Attention: Unremarkable Perception: Not impaired Orientation: Fully orientated Memory: Intact Insight: Good Judgement: Good Neurovegetative Symptoms Sleep: No change Appetitie: No change Interests: No change Energy: No change Libido: Not applicable Substance Use: Do you use nicotine?: No Have you used substances in the last 7 days?: No Additional Issues: Assaultive/Threatening Behavior: No Medical Concerns: No Client engaged in active self harm w/weapon: No Threatening to run away: No Child reported abuse/neglect: No Voluntarily presenting for services: Yes Domestic violence is a concern: No Extreme Psychosis or extreme behavior is present: No Impression The client is a 23-year-old, single, male, who lives with his mother and father in [facility] [place]. He is the apartment leasing specialist of a toddler. The client is blind, and is a recipient of a liver transfer. All medical diagnoses are a non-issued during the assessment. He uses the pronouns of He/Him. He identifies with the Anglican christian. All underrepresented categories were honored during his assessment. The client moved here from [place], [place] request of his parents with his child and child?s mother. The client reported he was well supported in [facility] with supports to help him remain independent and also care for his child. In January 2023 child?s mother who is also identified as being blind, left abruptly. The client reported that this started his downward spiral. The client reported that he feels hopeless, and trapped. He often thinks that people are better off if he was not here. Those thoughts became overwhelming today as he reported his mind was ?racing.? Although he reports that his family is supportive, he also acknowledges that he feels oppressed by them as well, as they take primary caregiver roles for his . He felt that he was more supported, and felt more independent for himself and others when he was living in [place]. The client completed all screening tools, including the CSSRS, however, due to this clinician, not being CAM?s trained additional support, could not be supported. The client denied current SI, as well as HI, he denied any NSSI, and self-reported his intent to engage in SI at a 0/10. The client was not wanting to add anyone as his ?emergency contact? today. He is seeking ways to ?get out? by himself and/or with his son as he is not able to drive. He is seeking additional supports and a Psychiatry referral to help manage his symptoms. Resources Reosurces reviewed and given:: [id number] Plan/Disposition Recommended Disposition: PCP/Office visit and Therapy. Plan: The client was d/c home with the understanding referrals will be put in for a case manger to assist in transportation, support groups, etc. and psychiatry to address his worries of thoughts of hopelessness, helplessness and feeling as though others will be better off without him. He was educated on the 988 call line for additional support. Person reported agreement to plan: Yes Reports/communication Outcome discussed with: ED/Personnel
== END 2023-06-29 16:56 | disposition home or self-care (01) ==
PROVIDERS: Emergency Provider Physician Assistant; PCP Nurse Practitioner Family
DX: R45.89 Other symptoms and signs involving emotional state (principal); F32.A Depression, unspecified; J32.9 Chronic sinusitis, unspecified; H92.02 Otalgia, left ear; Z94.4 Liver transplant status
CPT/HCPCS: 00123; 96127; 99283

== ENCOUNTER → 2023-07-02 03:38 | Outpatient (CLI) | payer MEDICARE, MEDICAID, SELFPAY ==
--- NOTE | 2023-07-02 08:30 | DI.US_ITS ---
APPROVED REPORT EXAM: Comprehensive 2D, Doppler, and color-flow Echocardiogram Patient Location: Out-Patient Cruise Director: Leah Skinner RDCS (AE) Indications: Cardiac murmur h/o PA stent. Liver transplant Other Information Study Quality: Adequate. Technically limited study due to patient had pain with abdominal scanning. U nable to evaluate with subcostal imaging.. Conclusion Normal left ventricular wall thickness and chamber size. Ejection fraction is 55%. Wall motion is n ormal Normal right ventricular size and systolic function Both atria are normal in size There are no structural valvular abnormalities Trace aortic, mitral, and tricuspid regurgitation Wall motion Left Ventricle The left ventricle is normal size. The left ventricular systolic function is normal. The left ventric ular ejection fraction is within the normal range. There is normal left ventricular wall thickness. T here is normal LV segmental wall motion. Ventricular septum not completely evaluated, exam terminated by patient. LVEF is 55%. Right Ventricle The right ventricle is normal size. The right ventricular systolic function is normal. Atria The left atrium size is normal. The right atrium size is normal. Atrial septum not completely evaluat ed, exam terminated by patient. Aortic Valve The aortic valve is normal in structure. Aortic valve is trileaflet. There is no aortic valvular sten osis. Trace aortic regurgitation. Mitral Valve The mitral valve is normal in structure. No evidence of mitral valve stenosis. Trace mitral regurgita tion. Tricuspid Valve The tricuspid valve is normal in structure. There is no tricuspid valve stenosis. Trace tricuspid reg urgitation. Pulmonic Valve The pulmonic valve is grossly normal in structure and function. There is no pulmonic valvular steno sis. Trace pulmonic regurgitation. Great Vessels The aortic root is normal in size. Ascending aorta is not well visualized. The IVC was not visualize d. Exam terminated by patent at subcostal window. Pericardium There is no pericardial effusion. Minimal subcostal imaging. Exam was terminated by patient. 2D Dimensions IVSD d PLAX 0.85 cm M: 0.6-1.2 Ao Root d 3.20 cm M: 3.1 - 3.7 LVPW d PLAX 0.86 cm M: 0.6 - 1.2 RVOT Diameter 1.91 cm LVID d PLAX 4.45 cm M: 4.2 - 5.8 LVDs 3.18 cm M: 2.5 - 4.0 LV EF Teichholz 55.1 % FS 28.48 % LV EDV (Teich) 90.0 mL LV ESV (Teich) 40.4 mL M-Mode TAPSE 1.70 cm (M/F) >1.7 Auto EF LV EDV A4C 133.4 mL LV EDV A2C 125.2 mL LV EDV BP 129.5 mL LV ESV A4C 65.9 mL LV ESV A2C 59.4 mL LV ESV BP 62.8 mL LVEF(%) A4C 50.6 % LVEF(%) A2C 52.6 % LVEF(%) BP 51.5 % LV SV A4C 67.5 ml LV SV A2C 65.8 ml LV SV BP 66.7 ml LV CO A4C 4.4 L/min LV CO A2C 4.6 L/min LV CO BP 4.5 L/min HR A4C 65.82 BPM HR A2C 69.50 BPM LV EDV Index (BP) LV Strain Long Pk Overal Avg (s) 17.48 LA Volume LA Length A4C 4.8 cm LA Length A2C 3.8 cm LA Area A4C s 16.14 cm2 LA Area A2C s 14.46 cm2 LA Vol A4C A-L 46.22 mL LA Vol A2C A-L 46.31 mL LA Vol Biplane A-L 51.7 mL LA Vol/BSA A4C A-L LA Vol/BSA A2C A-L LA Vol/BSA BP A-L 28.9 mL/m2 LA Vol A4C MOD 39.2 mL LA Vol A2C MOD 41.7 mL LA Vol BP MOD 45.1 mL RA Volume RA Area A4C 11.6 cm2 RA ESV A4C (A-L) 26.2mL RA Vol/BSA A4C A-L RA Length A4C 4.4 cm RA ESV A4C (MOD) 25.6mL LV Diastology MV E' medial 0.135 (>0.07 m/s) MV E Vmax 0.90 (0.4-1.3 m/s) MV E/E' MED 6.69 (<14) MV A Vmax 0.40 (0.4-1.3 m/s) MV E' lateral 0.191 (>0.1 m/s) E/A Ratio 2.3 MV E/E' LAT 4.72 (<14) MV E' Average 0.163 m/s MV E/E'(average) 5.54 Aortic Valve AoV Vmax 1.31 m/s LVOT Vmax 1.14 m/s AoV Peak Grad 33.1 mmHg LVOT Peak Grad 5.2 mmHg AoV Area (Vmax) 3.35 cm2 LVOT VTI 0.251 m AoV VTI 0.337 m LVOT Mean Grad 2.9 mmHg AoV Mean Jose. 1.07 m/s LVOT SV 96.88 mL AoV Mean Grad 4.8 mmHg LVOT Diam s 2.20 cm AoV Area (VTI) 2.87 cm2 AV Regurg Peak Gr. 59.15 mmHg Velocity Ratio 0.87 AR Decel Mitchell 1.4m/sec2 AR DT 2768 msec AR PHT 803 msec AR Vmax 3.85 m/s Mitral Valve MV DT 195 (160-240 msec) MV Vmax TIPS 0.96 m/s MV Mean Grad 1.2 (<2mmHg) MV VTI 0.234 m Pulmonary Valve PV Vmax 2.16 (0.5-1.5 m/s) RVOT Vmax 0.80 m/s PV Peak Grad 18.6 mmHg RVOT Peak Gr. 2.5 mmHg PV Mean Jose 1.61 m/s RVOT VTI 0.212 m PV Mean Grad 11.4 mmHg RVOT Diam s 1.91 cm (M/F) 2.1-3.5 PVA 1.05 cm2 RVOT Mean Gr. 1.5 mmHg Tricuspid Valve TV S' 0.10 m/s TR Vmax 2.41 m/s TR Peak Grad 23.2 mmHg
== END ==
PROVIDERS: PCP Nurse Practitioner Family; Visit Provider Nurse Practitioner Family
DX: R01.1 Cardiac murmur, unspecified (principal)
CPT/HCPCS: 93306

== ENCOUNTER 2024-02-19 00:47 | Outpatient (CLI) | payer MEDICARE, MEDICAID, SELFPAY ==
--- NOTE | 2024-02-19 | DI.US_ITS ---
Exam(s) US RENAL EXAM: US RENAL CLINICAL HISTORY: CHRONIC KIDNEY DISEASE STAGE 4, N18.4, RISING CREATININE. TECHNIQUE: Rao scale, color and spectral Doppler were used. COMPARISON: US RENAL ULTRASOUND(P) {[id number]} from 04/19/2015 US US ECHOCARDIOGRAM from 07/02/2023 FINDINGS: Right kidney: 11.0cm Echogenicity: Mildly diffusely increased, consistent with medical renal disease. Hydronephrosis: No Cyst or mass: Multiple, largest mid right kidney measuring 4.5 x 2.9 x 4.8 cm. Nephrolithiasis: No Left kidney: 8.0cm Echogenicity: Mildly diffusely increased, consistent with medical renal disease. Hydronephrosis: No Cyst or mass: Several small cysts. Nephrolithiasis: No Bladder:Normal. Both ureteral jets were visualized. Prevoid vol:648 cc Postvoid vol:0 cc Prostate volume 15 cc. IMPRESSION: Multiple bilateral renal cysts, right greater than left. Increased renal echogenicity consistent wit h medical renal disease. No evidence of hydronephrosis. DATA REPOSITORY:
== END 2024-02-19 01:07 ==
PROVIDERS: PCP Nurse Practitioner Family; Visit Provider Internal Medicine Nephrology
DX: N18.4 Chronic kidney disease, stage 4 (severe) (principal)
CPT/HCPCS: 76770

== ENCOUNTER → 2024-04-04 10:42 | Outpatient (BNVA) | payer MEDICARE, MEDICAID, SELFPAY | PROVIDERS: PCP Nurse Practitioner Family; Referring Provider Nurse Practitioner Family; Visit Provider Surgery | DX: F90.0 Attention-deficit hyperactivity disorder, predominantly inattentive type (principal); F41.9 Anxiety disorder, unspecified; I10 Essential (primary) hypertension; Q25.6 Stenosis of pulmonary artery; Z94.4 Liver transplant status; N18.4 Chronic kidney disease, stage 4 (severe); D89.9 Disorder involving the immune mechanism, unspecified; I67.1 Cerebral aneurysm, nonruptured; L72.9 Follicular cyst of the skin and subcutaneous tissue, unspecified; Z95.5 Presence of coronary angioplasty implant and graft; H54.3 Unqualified visual loss, both eyes | CPT/HCPCS: 99213 ==

== ENCOUNTER 2024-04-19 08:30 | Day surgery (SDC) | payer MEDICARE, MEDICAID, SELFPAY ==
[2024-04-19 08:42] VITALS: BP 148/49; PULSE 67; RESP 18; TEMP 36.7; O2SAT 100
[2024-04-19] MEDS: Cephalexin 500 MG CAP 1000 MG PO (09:02)
[2024-04-19] MEDS: Acetaminophen 500 MG TAB 1000 MG PO (09:02)
[2024-04-19] MEDS: Gabapentin 300 MG CAP 600 MG PO (09:02)
[2024-04-19] MEDS: Lidocaine/Prilocaine Cream 5 GM TUBE TP (09:03)
[2024-04-19] MEDS: Bupivacaine 0.25% Pres-Free 10 ML VIAL (10:40)
[2024-04-19] MEDS: Bupivacaine LIPOSOME/PF 133 MG/10 ML VIAL IJ (10:41)
--- NOTE | 2024-04-19 10:48 | SKI_PTH ---
PATIENT: Bay Henson LOC: [facility] U#:[id number] AGE/SX: 24/M ROOM: RE04/19/[address]: Helder Puckett : 2000 BED: DIS: 04/19/2024 SPEC #: [id number] RECD: 04/19/24 12:49 STATUS: LACI REJennifer #: [id number] MILTON: 04/19/24 10:[address]: Helder Puckett DEPT: Surgical Specimen RECD BY: Conchita Juarez ENTERED: 04/19/24 12:50 SP TYPE: STEFFANIE LANGE DR: Nathan Bowman, JOSE Tissues: 1 - SKIN CYST/TAG/DEBRIDEMENT Procedures: GROSS AND MICRO LEVEL 3 Comments: [id number]
[2024-04-19] MEDS: Bacitracin 30 GM TUBE (11:01)
[2024-04-19 11:04] VITALS: BP 137/49; PULSE 66; RESP 18; TEMP 36; O2SAT 100
--- NOTE | 2024-04-19 11:16 | W.PM.OP ---
Operative Note Operative Note Refer to Anesthesia Record Procedure Description: Procedures performed: 1. Excision of subcutaneous lesion/cyst - scrotum Indication: Benign-appearing follicular cyst clinically causing localized discomfort in right hemiscrotum. Specimen: Yes Blood loss: Minimal Procedure in detail: The patient gave verbal and written consent after discussing the risks, benefits and the indication for the procedure. The site was prepped and draped in sterile fashion. We performed a timeout and when we were all in agreement we began the procedure. Local anesthetic was injected which the patient tolerated very well. I made an elliptical incision through the skin around the cyst. Using care not to rupture the cyst wall, I circumferentially mobilized it sharply. I was able to deliver the entire cyst out of the incision, intact. It was then passed off the table and placed in formalin. I approximated the wound edges with interrupted Chromic sutures and skin glue on top. The patient tolerated the procedure well. Date of Procedure: 04/19/24
--- NOTE | 2024-04-19 11:16 | W.PM.DSUDISC ---
Date of service: 04/19/24 Discharge Plan Disposition Patient Disposition: Home Condition: Good Discharge Details Attending Provider: Helder Puckett Primary Care Provider: Nathan Bowman Home Meds and New Rx's Prescriptions: No Action aspirin 81 mg tablet,delayed release (DR/EC) 81 mg PO DAILY Qty: 90 3RF sodium bicarbonate 650 mg tablet 650 mg PO BID Qty: 540 6RF ferrous sulfate 325 mg (65 mg iron) tablet 325 mg PO BID Qty: 270 6RF mycophenolate mofetil [CellCept] 500 mg tablet 500 mg PO BID Qty: 180 3RF tacrolimus [Prograf] 1 mg capsule 1.5 mg PO BID Qty: 180 3RF cholecalciferol (vitamin D3) [D3-2000] 2,000 unit capsule 2,000 unit PO DAILY Qty: 90 3RF carvedilol 12.5 mg tablet 12.5 mg PO BID Qty: 180 3RF calcitriol 0.25 mcg capsule 0.25 mcg PO ONCE Qty: 90 3RF allopurinol 100 mg tablet 200 mg PO DAILY Qty: 180 3RF Discharge Instructions Additional Instructions: INSTRUCTIONS: It is okay to shower. Pat?dry incision. Remove glue in about 10 days if it does not fall off on its own. PAIN: It will be sore and uncomfortable for couple of days. You can use ice as needed. You can use Tylenol. Wear tight underwear for support which will alleviate pain. Resume all of your regular activities, medications and diet as tolerated. Stand Alone Forms: Nikki Carbajal (JEN) Activity:: Activity as Tolerated Diet:: As Tolerated
== END 2024-04-19 11:27 | disposition home or self-care (01) ==
PROVIDERS: PCP Nurse Practitioner Family; Visit Provider Student in an Organized Health Care Education/Training Program
PROC: (CPT 11422; principal; 2024-04-19 10:00)
DX: L72.8 Other follicular cysts of the skin and subcutaneous tissue (principal); Q44.71 Alagille syndrome; Z94.4 Liver transplant status; D84.821 Immunodeficiency due to drugs; Z79.620 Long term (current) use of immunosuppressive biologic
CPT/HCPCS: 11422; 00123; 11421; 88304; C9290; J0665

== ENCOUNTER 2024-04-21 03:11 | Outpatient (CLI) | payer MEDICARE, MEDICAID, SELFPAY ==
[2024-04-21 12:23] LABS: Abs Immature Grans 0.01 10^3/uL (0.0-0.06); Absolute Basophil Count 0.03 10^3/uL (0.0-0.2); Absolute Eosinophil Count 0.11 10^3/uL (0.0-0.7); Absolute Lymphocyte Count 0.88 10^3/uL (1.2-3.4); Basophils % 0.8 %; Eosinophils % 2.9 %; HCT 32.8 % (40.0-50.0); HGB 10.2 g/dL (13.5-17.5); Immature Grans % 0.3 %; Lymphocytes % 23.6 %; MCH 28.8 pg (27.0-33.0); MCHC 31.1 % (32.0-36.0); MCV 93 fL (80-95); MPV 10.8 fL (8.0-11.0); Neutrophils % 64.4 %; Platelet Count 121 10^3/uL (130-400); RBC 3.54 10^6/uL (4.36-5.78); RDW-SD 47.8 fL; WBC 3.73 10^3/uL (4.4-10.8)
[2024-04-21 12:46] LABS: ALT 27 U/L (16-63); AST 34 U/L (15-37); Albumin 3.7 g/dL (3.4-5.0); Alkaline Phosphatase 95 U/L (46-116); Anion Gap 11.9 mmol/L (3-11); Bilirubin, Total 0.26 mg/dL (0.2-1.0); CO2 20.1 mmol/L (21.0-32.0); CREATININE 2.9 mg/dL (0.70-1.30); Chloride 110 mmol/L (98-107); Estimated GFR 29.67 (mL/min/1.73m2); Glucose 115 mg/dL (74-106); Potassium 5.2 mmol/L (3.5-5.1); Sodium 142 mmol/L (136-145); Total Protein 6.8 g/dL (6.4-8.2)
[2024-04-21 13:34] LABS: BUN 81 mg/dL (7-18)
[2024-04-22 13:37] LABS: Tacrolimus 2.6 ng/mL (See Note)
== END 2024-04-21 03:12 | disposition home or self-care (01) ==
PROVIDERS: PCP Nurse Practitioner Family; Visit Provider Nurse Practitioner Family
DX: Z94.4 Liver transplant status (principal); L72.0 Epidermal cyst
CPT/HCPCS: 36415; 80053; 80197; 85025

== ENCOUNTER 2024-09-14 15:06 | Outpatient (CLI) | payer MEDICARE, MEDICAID, SELFPAY ==
[2024-09-14 15:43] LABS: HCT 33.8 % (40.0-50.0); HGB 10.7 g/dL (13.5-17.5); MCH 28.3 pg (27.0-33.0); MCHC 31.7 % (32.0-36.0); MCV 89 fL (80-95); MPV 10.3 fL (8.0-11.0); Platelet Count 109 10^3/uL (130-400); RBC 3.78 10^6/uL (4.36-5.78); RDW-SD 45.5 fL; WBC 3.38 10^3/uL (4.4-10.8)
[2024-09-14 16:29] LABS: ALT 32 U/L (16-63); AST 44 U/L (15-37); Albumin 3.9 g/dL (3.4-5.0); Alkaline Phosphatase 105 U/L (46-116); Anion Gap 12.8 mmol/L (3-11); Bilirubin, Total 0.2 mg/dL (0.2-1.0); CO2 19.2 mmol/L (21.0-32.0); Calcium 8.4 mg/dL (8.5-10.1); Calculated LDL 34 mg/dL (<100); Chloride 109 mmol/L (98-107); Cholesterol 102 mg/dL (<200); Estimated GFR 19.58 (mL/min/1.73m2); Glucose 87 mg/dL (74-106); HDL Cholesterol 50 mg/dL (>or=40); Potassium 4.3 mmol/L (3.5-5.1); Sodium 141 mmol/L (136-145); Total Protein 7.2 g/dL (6.4-8.2); Triglyceride 91 mg/dL (<150)
[2024-09-14 16:54] LABS: BUN 93 mg/dL (7-18); CREATININE 4.1 mg/dL (0.70-1.30)
[2024-09-14 17:17] LABS: TSH 1.21 uIU/mL (0.36-3.74)
[2024-09-14 18:00] LABS: Hemoglobin A1C 5.3 % (<5.7)
[2024-09-15 12:57] LABS: Tacrolimus <2.0 ng/mL (See Note)
== END 2024-09-14 15:07 | disposition home or self-care (01) ==
LOC: LBO 15:07
PROVIDERS: PCP Nurse Practitioner Family; Visit Provider Nurse Practitioner Family
DX: Z13.220 Encounter for screening for lipoid disorders (principal); D89.9 Disorder involving the immune mechanism, unspecified; Z13.1 Encounter for screening for diabetes mellitus; N18.4 Chronic kidney disease, stage 4 (severe); Z94.4 Liver transplant status; Z48.23 Encounter for aftercare following liver transplant
CPT/HCPCS: 36415; 80053; 80061; 85027; 80197; 83036; 84443

== ENCOUNTER 2024-09-15 09:29 | Emergency (ER) | payer MEDICARE, MEDICAID, SELFPAY ==
[2024-09-15 09:30] VITALS: BP 139/30; PULSE 53; RESP 15; TEMP 36.1; O2SAT 100
--- NOTE | 2024-09-15 09:30 | DI.US_ITS ---
Exam(s) US RENAL EXAM: US RENAL CLINICAL HISTORY: with bladder, PAM (creat 2.9 -> 4.1). TECHNIQUE: Rao scale, color and spectral Doppler were used. COMPARISON: US US RENAL from 02/19/2024 FINDINGS: Renal size in cm: Right: 10.9. Left: 9.0. Echogenicity: Normal. Hydronephrosis: No. Cyst or mass: There are bilateral multiple renal cysts. The largest on the right measures 4.8 x 3.9 x 4.8 cm. The largest on the left measures 5.6 x 1.7 x 3.5 cm. Nephrolithiasis: No. Other findings: The spleen is enlarged measuring 15 cm. Bladder:No intraluminal masses are seen. The bladder wall is thickened at almost 7 mm. Ureteral jets: Right: Not visualized on this examination. Left: Not visualized on this examination. Prevoid vol:354 cc Postvoid vol:6 cc Prostate: 10 cc Renal color flow: Symmetric and within normal limits. IMPRESSION: 1. No evidence of nephrolithiasis or hydronephrosis. 2. Diffuse bladder wall thickening. Differential considerations include bladder outlet obstruction, neurogenic bladder, cystitis. Please correlate clinically. 3. Splenomegaly. DATA REPOSITORY:
[2024-09-15 09:36] VITALS: BP 139/30; PULSE 53; RESP 15; TEMP 36.1; O2SAT 100
--- NOTE | 2024-09-15 09:45 | DI.RAD_ITS ---
Exam(s) XR CHEST 2V PA LATERAL EXAM: XR CHEST 2V PA LATERAL CLINICAL HISTORY: URI sx, cough, R lower rib pain TECHNIQUE: 2D digital imaging was performed of the chest. Two images were obtained. PA and lateral views were obtained. COMPARISON: CR CHEST 2 VIEWS PA,LAT from 03/11/2009 FINDINGS: MEDIASTINUM: Normal. HEART: Normal. PULMONARY VASCULATURE: Normal. LUNGS: Clear. PLEURAL SPACE: No pleural effusion or pneumothorax. BONE:Within normal limits for the patient's age. OTHER FINDINGS:Normal. IMPRESSION: No acute pulmonary findings. DATA REPOSITORY: RADIATION DOSE DELIVERED:
--- NOTE | 2024-09-15 10:02 | W.ED.GENAD ---
Discharge Plan Disposition Patient Disposition: Home Condition: Good Discharge Details Clinical Impression: Acute dehydration Primary Care Provider: Nathan Bowman ED Provider: Татьяна yS Home Meds and New Rx's Prescriptions: No Action aspirin 81 mg tablet,delayed release (DR/EC) 81 mg PO DAILY Qty: 90 3RF cholecalciferol (vitamin D3) [D3-2000] 50 mcg (2,000 unit) capsule 6,000 unit PO DAILY sodium bicarbonate 650 mg tablet 650 mg PO BID Qty: 540 6RF mycophenolate mofetil [CellCept] 500 mg tablet 500 mg PO BID Qty: 180 3RF tacrolimus [Prograf] 1 mg capsule 1.5 mg PO BID Qty: 180 3RF allopurinol 100 mg tablet 200 mg PO DAILY Qty: 180 3RF ferrous sulfate 325 mg (65 mg iron) tablet 325 mg PO BID Qty: 270 6RF carvedilol 12.5 mg tablet 12.5 mg PO BID Qty: 180 3RF Discharge Instructions Instructions: Dehydration, Adult (DC) Additional Instructions: Please follow-up with your nephrology team. They will let you know if they need any repeat labs drawn. Stay very well-hydrated, aiming to drink couple of liters of fluid each day. Gatorlyte or Pedialyte are great options; be sure to also drink plenty of water as well. Return to emergency care if you develop new fevers, belly pain, uncontrollable vomiting, decreased urine output, or if you are very worried you need to be rechecked again immediately Discharge Data Discharge Date/Time-TO BE ENTERED AT DEPARTURE: 09/15/24 14:22 HPI General Date/Time Provider Initiated Documentation: 09/15/24 09:34. HPI Narrative: Bay is a 24 year old male who presents to the emergency department today for evaluation of dehydration. He reports that for the last 4 days he has been feeling unwell, says he caught something from his son who is also been sick. Has had hot flashes/cold chills, general malaise, nausea, mild runny nose and cough, right sided lower rib discomfort that is worsened by deep breathing/coughing/twisting, decreased urine output (2x daily during the last 2 days), and diarrhea 3-4 times a day. Denies recorded fevers, difficulty breathing, palpitations, syncope, blood in stool, dysuria. Past medical history is significant for Alagille syndrome with pulmonary artery stenosis, heart murmur, kidney cysts, and CKD. He did receive liver transplant in 2012, says he has been taking Prograf as prescribed. Physical exam reassuring. Patient is alert and oriented, no acute distress. Moist mucous membranes. Easy work of breathing, lung sounds clear bilaterally. Normal heart sounds. Abdomen is soft, nondistended, nontender to palpation with normoactive bowel sounds. Moving all extremities equally. No pedal edema. Radial pulses 2+ bilaterally. D/dx includes but is not limited to: Dehydration due to diarrhea, interstitial diseases/glomerular disease, pneumonia, obstructive process, electrolyte imbalance, hepatorenal syndrome, neoplasm I independently interpreted the following tests: CBC shows no change in baseline anemia. CMP shows creatinine 3.5 with BUN 93, slightly improved from 4.1 and 93 yesterday. Slightly elevated CPK, not consistent with rhabdomyolysis. Proteinuria unchanged from previous. Chest x-ray reassuring, no acute abnormalities noted. While in the emergency department, Bay received 1 L Plasma-Lyte for rehydration, reports feeling significantly better. I discussed case with Dr. Singh, email marketing assistant. Reviewed patient's presentation and labs; most consistent with dehydration. She recommends that patient increase fluid intake, take a couple liters daily, including electrolytes. Nephrology will touch base if repeat labs are indicated. Reviewed discharge instructions with patient, including symptomatic management and red flags indicating need for return to emergency care. He voices agreement with plan of care Related Data Home Medications ?Medication ?Instructions ?Recorded ?Confirmed aspirin 81 mg tablet,delayed 81 mg PO DAILY #90 tabs 06/04/23 09/15/24 release Prograf 1 mg capsule (tacrolimus) 1.5 mg (1.5 x 1 mg) PO BID #180 12/03/23 09/15/24 caps mycophenolate mofetil 500 mg 500 mg PO BID #180 tabs 12/03/23 09/15/24 tablet (CellCept) sodium bicarbonate 650 mg tablet 650 mg PO BID #540 tabs 12/03/23 09/15/24 allopurinol 100 mg tablet 200 mg (2 x 100 mg) PO DAILY #180 04/13/24 09/15/24 tabs cholecalciferol (vitamin D3) 50 6,000 unit PO DAILY 06/06/24 09/15/24 mcg (2,000 unit) capsule (D3-2000) ferrous sulfate 325 mg (65 mg 325 mg PO BID #270 tabs 06/14/24 09/15/24 iron) tablet carvedilol 12.5 mg tablet 12.5 mg PO BID #180 tabs 08/01/24 09/15/24 Previous Rx's ?Medication ?Instructions ?Recorded aspirin 81 mg tablet,delayed 81 mg PO DAILY #90 tabs 06/04/23 release Prograf 1 mg capsule (tacrolimus) 1.5 mg (1.5 x 1 mg) PO BID #180 12/03/23 caps mycophenolate mofetil 500 mg 500 mg PO BID #180 tabs 12/03/23 tablet (CellCept) sodium bicarbonate 650 mg tablet 650 mg PO BID #540 tabs 12/03/23 allopurinol 100 mg tablet 200 mg (2 x 100 mg) PO DAILY #180 04/13/24 tabs ferrous sulfate 325 mg (65 mg 325 mg PO BID #270 tabs 06/14/24 iron) tablet carvedilol 12.5 mg tablet 12.5 mg PO BID #180 tabs 08/01/24 Allergies Allergy/AdvReac Type Severity Reaction Status Date / Time ibuprofen AdvReac Unknown Other (See Verified 09/15/24 09:36 Comment) General Stated Complaint: GenMedical FRANCO: 3 Review of Systems Narrative: see HPI Exam Const General: cooperative, healthy appearing, comfortable and no acute distress Nutritional Appearance: average body habitus Orientation: alert and oriented x3 HENMT Head: normal to inspection General nose exam: external nose normal Mouth: oral mucosae normal and moist mucous membranes Neck Neck: normal visual inspection Cardio Rate: regular rate Rhythm: regular rhythm Pulses: radial pulses present GI Inspection: normal to inspection and non-distended Palpation: soft, no guarding, not rigid and nontender Skin General skin exam: no rashes or lesions noted Course Vital Signs Vital signs: Vital Signs Temperature 36.1 C L 09/15/24 09:30 Pulse 53 L 09/15/24 09:30 Respiratory Rate 15 09/15/24 09:30 Blood Pressure 139/30 L 09/15/24 09:30 Pulse Oximetry 100 09/15/24 09:30 Temperature 36.1 C L 09/15/24 09:36 Temperature Source Tympanic 09/15/24 09:36 Pulse 53 L 09/15/24 09:36 Respiratory Rate 15 09/15/24 09:36 Blood Pressure 139/30 L 09/15/24 09:36 Blood Pressure Position Sitting 09/15/24 09:36 Pulse Oximetry 100 09/15/24 09:36 Oxygen Delivery Method Room Air 09/15/24 09:36 Oxygen Flow Rate 0 09/15/24 09:36 Pain Level 3 09/15/24 09:36 Medical Decision Making Imaging Data Radiologic Study: Radiologist's impression: Exam(s) XR CHEST 2V PA LATERAL EXAM: XR CHEST 2V PA LATERAL CLINICAL HISTORY: URI sx, cough, R lower rib pain TECHNIQUE: 2D digital imaging was performed of the chest. Two images were obtained. PA and lateral views were obtained. COMPARISON: CR CHEST 2 VIEWS PA,LAT from 03/11/2009 FINDINGS: MEDIASTINUM: Normal. HEART: Normal. PULMONARY VASCULATURE: Normal. LUNGS: Clear. PLEURAL SPACE: No pleural effusion or pneumothorax. BONE:Within normal limits for the patient's age. OTHER FINDINGS:Normal. IMPRESSION: No acute pulmonary findings. 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 Family History Father Alcohol use disorder Maternal Grandfather Alcohol use disorder Social History Smoking/Tobacco Use Status: Never Second Hand Exposure: No Smoking risk assessment performed?: Yes Alcohol Intake: current Alcohol Intake frequency: holidays/special occasions only Alcohol type: hard liquor Drug use: Daily Substance use type: marijuana Details: Last used 2 days ago Marijuana. Adopted: No Caregiver/Support person: No Foster care: No Household members: family and children Housing: house Number of Children: 1 Communication Needs: Blind Education Level: college Details: some Do you need help understanding health information?: Rarely current occupation: Unemployed Pets and animals: Yes Pets and animals: dog(s) Sexually active: Yes Do you think of yourself as: straight/heterosexual Current gender identity: male What is your relationship status?: never How often do you talk on the phone with friends or family?: never How often do you get together with friends or relatives?: once per week How often do you attend anabaptist or protestant services?: 1-3 times per year Panel score (0-1 are the most socially isolated patients): 0 What type of physical activity do you participate in: walking Duration: 15-30 minutes/day Frequency: 5-6 times per week Essence/Jewish: None Agree to transfusion: Yes Seatbelt use: always Helmet use: Yes Helmet use: always Drive intox or ride w/intox class a regional drivers: No Working smoke detector in home: Yes Carbon monox detector in home: Yes Firearms in home: Yes Firearms unloaded and locked: Yes Do you feel safe at home: Yes Do you feel safe in your relationship?: Yes Victim of physical abuse: No Victim of emotional abuse: No Victim of sexual abuse: No
[2024-09-15 10:30] LABS: Absolute Eosinophil Count 0.14 10^3/uL (0.0-0.7); Absolute Lymphocyte Count 0.82 10^3/uL (1.2-3.4); Absolute Monocyte Count 0.22 10^3/uL (0.1-0.8); Absolute Neutrophil Count 1.27 10^3/uL (1.2-6.7); Eosinophils % 5.7 %; HCT 33.9 % (40.0-50.0); HGB 10.8 g/dL (13.5-17.5); Lymphocytes % 33.5 %; MCH 28.3 pg (27.0-33.0); MCHC 31.9 % (32.0-36.0); MCV 89 fL (80-95); MPV 10.2 fL (8.0-11.0); Neutrophils % 51.8 %; Platelet Count 101 10^3/uL (130-400); RBC 3.81 10^6/uL (4.36-5.78); RDW 14.2 % (11.8-14.1); RDW-SD 45.8 fL; WBC 2.45 10^3/uL (4.4-10.8)
[2024-09-15] MEDS: ELECTROLYTE-R SOLUTION 1,000 ML 1000 ML IV (10:39)
[2024-09-15 10:56] LABS: ALT 33 U/L (16-63); AST 43 U/L (15-37); Albumin 3.8 g/dL (3.4-5.0); Alkaline Phosphatase 104 U/L (46-116); Anion Gap 11.5 mmol/L (3-11); Bilirubin, Total 0.3 mg/dL (0.2-1.0); CO2 19.5 mmol/L (21.0-32.0); CREATININE 3.5 mg/dL (0.70-1.30); Calcium 8.7 mg/dL (8.5-10.1); Chloride 109 mmol/L (98-107); Estimated GFR 23.67 (mL/min/1.73m2); Glucose 84 mg/dL (74-106); Potassium 4.6 mmol/L (3.5-5.1); Sodium 140 mmol/L (136-145); Total Protein 7.1 g/dL (6.4-8.2)
[2024-09-15 11:00] LABS: BUN 93 mg/dL (7-18)
[2024-09-15 11:16] LABS: COVID-19 PCR Negative (Negative); Influenza A PCR Negative (Negative); Influenza B PCR Negative (Negative); RSV PCR Negative (Negative)
[2024-09-15 11:17] LABS: Source Nasopharynx
[2024-09-15 12:02] VITALS: BP 144/34; RESP 16; O2SAT 99
[2024-09-15 12:03] VITALS: RESP 16
[2024-09-15 12:05] LABS: Bilirubin Negative (Negative); Blood Trace-lysed (Negative); Clarity Clear (Clear); Glucose Negative (Negative); Ketones Negative (Negative); Leukocyte Esterase Negative (Negative); Nitrite Negative (Negative); Specific Gravity 1.015 (1.005-1.025); Urobilinogen 0.2 mg/dL (Up to 0.2); pH 5.5 (5-8)
[2024-09-15 12:14] LABS: RBC 0-2 HPF (0-2); WBC Negative HPF (0-5)
[2024-09-15 12:15] LABS: Bacteria Rare HPF (Negative); C & S Indicated? No; Casts Negative LPF (Negative); Crystals Negative HPF (Negative); Epithelial Cells Negative HPF (Negative); Mucus Negative (Negative)
[2024-09-15 12:23] LABS: COMMENT (LAB VIEW ONLY) 85.08 mg/dL; PROTEIN 88.3 mg/dL; Prot/Crea Ur Ratio 1.03
[2024-09-15 13:07] VITALS: BP 145/68; PULSE 68; RESP 18; O2SAT 97
[2024-09-15 13:56] LABS: Lab Add On Test DONE
[2024-09-15 14:12] VITALS: BP 124/28; PULSE 64; RESP 18; TEMP 36.7; O2SAT 100
[2024-09-15 14:22] LABS: Creatine Kinase 694 U/L (39-308)
== END 2024-09-15 14:22 | disposition home or self-care (01) ==
PROVIDERS: Emergency Provider Nurse Practitioner Family; PCP Nurse Practitioner Family
DX: E86.0 Dehydration (principal); I10 Essential (primary) hypertension; I12.9 Hypertensive chronic kidney disease with stage 1 through stage 4 chronic kidney disease, or unspecified chronic kidney disease; N18.4 Chronic kidney disease, stage 4 (severe); Z94.0 Kidney transplant status; Z95.5 Presence of coronary angioplasty implant and graft; Z79.82 Long term (current) use of aspirin
CPT/HCPCS: 76770; 80053; 82550; 87637; 96365; 99284; 71046; 81003; 81015; 82565; 84156; 85025

== ENCOUNTER 2024-09-21 10:37 | Outpatient (CLI) | payer MEDICARE, MEDICAID, SELFPAY ==
[2024-09-21 10:43] LABS: Anion Gap 11.1 mmol/L (3-11); BUN 79 mg/dL (7-18); CO2 17.9 mmol/L (21.0-32.0); CREATININE 3.3 mg/dL (0.70-1.30); Calcium 8.6 mg/dL (8.5-10.1); Chloride 112 mmol/L (98-107); Estimated GFR 25.41 (mL/min/1.73m2); Glucose 96 mg/dL (74-106); Potassium 5.4 mmol/L (3.5-5.1); Sodium 141 mmol/L (136-145)
== END 2024-09-21 10:38 | disposition home or self-care (01) ==
LOC: LBO 10:37
PROVIDERS: PCP Nurse Practitioner Family; Visit Provider Nurse Practitioner Family
DX: I10 Essential (primary) hypertension (principal)
CPT/HCPCS: 36415; 80048

== ENCOUNTER → 2024-09-29 14:33 | Outpatient (BNVA) | payer MEDICARE, MEDICAID, SELFPAY | PROVIDERS: PCP Nurse Practitioner Family; Referring Provider Nurse Practitioner Family; Visit Provider Student in an Organized Health Care Education/Training Program | DX: M20.011 Mallet finger of right finger(s) (principal) | CPT/HCPCS: 99213 ==

== ENCOUNTER 2024-12-08 10:50 | Outpatient (CLI) | payer MEDICARE, MEDICAID, SELFPAY ==
[2024-12-08 10:27] LABS: HCT 32.6 % (40.0-50.0); HGB 10.7 g/dL (13.5-17.5)
[2024-12-08 10:52] LABS: ALT 26 U/L (16-63); AST 17 U/L (15-37); Albumin 3.5 g/dL (3.4-5.0); Alkaline Phosphatase 144 U/L (46-116); Anion Gap 13.8 mmol/L (3-11); Bilirubin, Total 0.2 mg/dL (0.2-1.0); CO2 15.2 mmol/L (21.0-32.0); Calcium 8.7 mg/dL (8.5-10.1); Chloride 108 mmol/L (98-107); Estimated GFR 25.41 (mL/min/1.73m2); Glucose 114 mg/dL (74-106); Potassium 5.0 mmol/L (3.5-5.1); Sodium 137 mmol/L (136-145); Total Protein 6.7 g/dL (6.4-8.2)
[2024-12-08 11:31] LABS: BUN 96 mg/dL (7-18)
== END 2024-12-08 10:51 | disposition home or self-care (01) ==
LOC: LBO 10:51
PROVIDERS: PCP Nurse Practitioner Family; Visit Provider Internal Medicine Nephrology
DX: D63.1 Anemia in chronic kidney disease (principal)
CPT/HCPCS: 36415; 80053; 85014; 85018

== ENCOUNTER 2024-12-16 19:45 | Outpatient (REF) | payer MEDICARE, MEDICAID, SELFPAY ==
[2024-12-16 21:07] LABS: Abs Immature Grans 0.02 10^3/uL (0.0-0.06); HCT 28.6 % (40.0-50.0); HGB 9.1 g/dL (13.5-17.5); Immature Grans % 0.4 %; MCH 28.3 pg (27.0-33.0); MCHC 31.8 % (32.0-36.0); MCV 89 fL (80-95); MPV 10.4 fL (8.0-11.0); Platelet Count 146 10^3/uL (130-400); RBC 3.21 10^6/uL (4.36-5.78); RDW 14.0 % (11.8-14.1); RDW-SD 46.0 fL; WBC 5.04 10^3/uL (4.4-10.8)
[2024-12-16 21:14] LABS: Iron 46 ug/dL (65-175); Total Iron Binding Capacity 207 ug/dL (250-450)
[2024-12-16 21:28] LABS: Ferritin 229 ng/mL (26-388)
[2024-12-19 09:54] LABS: Transferrin 165 mg/dL (201-352)
== END 2024-12-16 19:46 | disposition home or self-care (01) ==
LOC: LBN 19:45
PROVIDERS: PCP Nurse Practitioner Family; Visit Provider Nurse Practitioner Family
DX: D64.9 Anemia, unspecified (principal)
CPT/HCPCS: 82728; 83540; 83550; 84466; 85025

== ENCOUNTER 2025-03-16 00:05 | Outpatient (RCR) | payer MEDICARE, MEDICAID, SELFPAY ==
[2025-03-02] MEDS: IRON SUCROSE COMPLEX 300 MG in Normal Saline 250 ML 176.667 MG IVPB (08:30)
[2025-03-02] MEDS: Normal Saline Flush 10 ML SYR IVP (08:30)
[2025-03-07 10:29] LABS: HCT 28.7 % (40.0-50.0); HGB 9.1 g/dL (13.5-17.5)
[2025-03-07] MEDS: IRON SUCROSE COMPLEX 300 MG in Normal Saline 250 ML 176.667 MG IVPB (10:33)
[2025-03-07] MEDS: Normal Saline Flush 10 ML SYR IVP (10:33)
[2025-03-16] MEDS: Normal Saline Flush 10 ML SYR IVP (07:50)
[2025-03-16] MEDS: IRON SUCROSE COMPLEX 300 MG in Normal Saline 250 ML 176.667 MG IVPB (08:22)
== END 2025-03-17 23:59 | disposition home or self-care (01) ==
LOC: INF 00:05
PROVIDERS: Internal Medicine Nephrology; PCP Nurse Practitioner Family; Visit Provider Nurse Practitioner Family
DX: N18.4 Chronic kidney disease, stage 4 (severe) (principal); D63.1 Anemia in chronic kidney disease; D50.9 Iron deficiency anemia, unspecified
CPT/HCPCS: 36415; 96365; 96366; 96372; 96375; 85014; 85018; J0881; J1756